=== PATIENT | male | born 1975 | race Two or more races ===

== ENCOUNTER 2025-01-08 14:19 | Outpatient (CLI) | payer OTHER | END 2025-01-08 14:28 | disposition home or self-care (01) | LOC: RAD 14:19 | PROVIDERS: ATTEND Internal Medicine | DX: R05.9 Cough, unspecified (principal) ==

== ENCOUNTER → 2025-01-08 14:43 | Outpatient (CLI) | payer OTHER | END | disposition home or self-care (01) | LOC: EKG 14:43 | PROVIDERS: ATTEND Internal Medicine | DX: Z01.818 Encounter for other preprocedural examination (principal); I10 Essential (primary) hypertension ==